=== PATIENT | female | born 1955 ===

== ENCOUNTER → 2017-12-29 | Outpatient (REF) | payer OTHER | LOC: M LAB REF 15:59 | DX: N39.0 Urinary tract infection, site not specified (principal) ==

== ENCOUNTER → 2021-11-22 | Outpatient (REF) | payer MEDICARE, OTHER | LOC: M LAB REF 12:12 | PROVIDERS: ATTEND Physician Assistant Medical | DX: N39.0 Urinary tract infection, site not specified (principal) ==